=== PATIENT | male | born 1965 | race Caucasian/White ===

== ENCOUNTER 2016-04-21 05:37 | Inpatient (IN) | payer OTHER ==
[2016-04-20 15:48] VITALS: Ht 180.3 cm; Wt 105.0 kg
[2016-04-21] VITALS (24 sets, daily range): BP systolic 98–151; BP diastolic 62–87; PULSE 72–116; RESP 12–22
[~2016-04-21] VITALS: Ht 180.3 cm; Wt 105.0 kg
[~2016-04-21 05:37] MED LIST: HYDR-902 PO; OXYC10TA63 PO; PREG50CA PO; TIZA4CAP6 PO
[2016-04-21] MEDS ORDERED: CEFAZOLIN 2 GM/50 ML (PMX) 50 ML IVPB SCH (06:30)
[2016-04-21] MEDS ORDERED: LACTATED RINGER'S 1,000 ML IV* SCH (06:30)
[2016-04-21] MEDS ORDERED: GELATIN SIZE 100 SPONGE ONE ×2 (06:50→09:38)
[2016-04-21] MEDS ORDERED: CEFAZOLIN 1 GM INJ ONE ×2 (06:50→07:00)
[2016-04-21] MEDS ORDERED: THROMBIN 5000 UNIT VIAL ONE ×4 (06:50→09:38)
[2016-04-21] MEDS ORDERED: SURGIFOAM POWDER 1 GM KIT ONE ×2 (06:50→06:53)
[2016-04-21] MEDS ORDERED: BUPIVACAINE 0.25%/EPI (SDV) 30 ML INJ ONE ×2 (06:51→07:26)
--- NOTE | 2016-04-21 06:56 | HPN ---
Date/Time of Note Date/Time of Note DATE: 04/21/16 TIME: 06:56 Interval H&P Admission Note Pt. seen H&P reviewed: No system changes FARHAD BRAND MD Apr 21, 2016 06:56
[2016-04-21] MEDS ORDERED: NALOXONE (0.4 MG/ML) INJ IV PRN (07:00)
[2016-04-21] MEDS ORDERED: ALBUMIN HUMAN 5% 250 ML INJ ONE (07:00)
[2016-04-21] MEDS ORDERED: CYCLOBENZAPRINE 10 MG TAB PO PRN (07:00)
[2016-04-21] MEDS ORDERED: AL HYDROX/MG HYDROX/SIMETH 30 ML CUP PO PRN (07:00)
[2016-04-21] MEDS ORDERED: PROPOFOL 1000 MG INJ ONE (07:00)
[2016-04-21] MEDS ORDERED: DIPHENHYDRAMINE 50 MG INJ IV PRN ×2 (07:00→09:00)
[2016-04-21] MEDS ORDERED: CEPASTAT LOZENGE MT PRN (07:00)
[2016-04-21] MEDS ORDERED: HYDROmorphONE 1 MG/ML SYG IV PRN (07:00)
[2016-04-21] MEDS ORDERED: ACETAMINOPHEN 325 MG TAB PO PRN (07:00)
[2016-04-21] MEDS ORDERED: HYDROCODONE/APAP (10/325) TAB PO PRN (07:00)
[2016-04-21] MEDS ORDERED: HYDROmorphONE 0.2 MG/ML PCA IV SCH (07:00)
[2016-04-21] MEDS ORDERED: ONDANSETRON 4 MG INJ IV PRN ×2 (07:00→09:00)
[2016-04-21] MEDS ORDERED: ZOLPIDEM 5 MG TAB PO PRN (07:00)
[2016-04-21] MEDS ORDERED: DIPHENHYDRAMINE 25 MG CAP PO PRN (07:00)
[2016-04-21] MEDS ORDERED: DEXAMETHASONE 4 MG/ML 1 ML INJ ONE (07:03)
[2016-04-21] MEDS ORDERED: ROCURONIUM 50 MG INJ ONE (07:03)
[2016-04-21] MEDS ORDERED: LIDOCAINE 100 MG SYRINGE ONE (07:03)
[2016-04-21] MEDS ORDERED: ONDANSETRON 4 MG INJ ONE ×2 (07:03→12:35)
[2016-04-21] MEDS ORDERED: PROPOFOL 20 ML ONE (07:03)
[2016-04-21] MEDS ORDERED: NEOSTIGMINE 3 MG/3 ML SYRINGE ONE (07:03)
[2016-04-21] MEDS ORDERED: GLYCOPYRROLATE 1 MG INJ ONE (07:03)
[2016-04-21] MEDS ORDERED: MIDAZOLAM 1 MG/ML 2 ML INJ ONE (07:03)
[2016-04-21] MEDS ORDERED: HEPARIN 1000 UNITS/ML 10 ML INJ ONE (07:25)
[2016-04-21] MEDS ORDERED: SODIUM CL BACTERIOSTATIC 30 ML INJ ONE (08:46)
[2016-04-21] MEDS ORDERED: FENTAnyl 50 MCG/ML VIAL IV PRN ×3 (09:00)
[2016-04-21] MEDS ORDERED: TRIMETHOBENZAMIDE 100 MG/ML VIAL IM PRN (09:00)
[2016-04-21] MEDS: TIZANIDINE 4 MG TAB PO SCH (09:00)
[2016-04-21] MEDS ORDERED: HYDROmorphONE (0.2 MG/ML) 10ML SYG IV PRN ×3 (09:00)
[2016-04-21] MEDS ORDERED: LABETALOL HCL 20MG INJ IV PRN (09:00)
[2016-04-21] MEDS: oxyCODONE (CR) 20 MG TAB [oxyCONTIN] PO SCH ×2 (09:00→21:35)
[2016-04-21] MEDS ORDERED: MIDAZOLAM 1 MG/ML 2 ML INJ IV PRN (09:00)
[2016-04-21] MEDS ORDERED: EPHEDrine SULFATE 50 MG/5 ML SYG IV PRN (09:00)
[2016-04-21] MEDS ORDERED: MEPERIDINE 25 MG INJ IV PRN (09:00)
[2016-04-21] MEDS ORDERED: hydrALAzine 20 MG INJ IV PRN (09:00)
[2016-04-21] MEDS ORDERED: ALBUMIN HUMAN 25% 200 ML ONE (10:19)
[2016-04-21] MEDS ORDERED: FENTAnyl 50 MCG/ML VIAL ONE ×2 (10:43→13:02)
--- NOTE | 2016-04-21 11:45 | OPR ---
DATE OF OPERATION: 04/21/2016 PREOPERATIVE DIAGNOSES: 1. History of left L4-L5 diskectomy. 2. Chronic back pain with radiculopathy. 3. L4-5 and L5-S1 degenerative disk disease and stenosis. 4. BMI 33 (obesity). PRIMARY SURGEON: Don Ellison MD. CO-SURGEON: Francis Pedro MD SECOND CERTIFICATION OFFICER: AFTAB Rivera, NEED FOR CO-SURGEON: A co-surgeon was required in order to provide vascular access. This is the [facility] [place] [facility]. IMPLANTS: [place] stainless 42 width, 12 degree lordosis with 15 mm height at L4-L5 and 17 mm heig ht at L5-S1 with 6 mm x 30 mm screws throughout. Fibergraft. FINDINGS: Neuromonitoring at the start of the case revealed left L4 amplitude down 50%, right L4 am plitude down 50%, left L5 amplitude down 70%, right L5 amplitude down 60%, left S1 amplitude down 50 %, right S1 amplitude down 50%. At the end of the case L4 was normal, L5 were down 20% bilaterally and S1 down 10% bilaterally. The patient had scar tissue into the disk space from the previous surg eries, causing adherence of the disk. ESTIMATED BLOOD LOSS: Per Dr. Pedro. DRAINS: None. SPECIMENS: L4-5 and L5-S1 disk was sent to Pathology. COMPLICATIONS OF PROCEDURES: None. ANESTHESIOLOGIST: Chava Graham MD TYPE OF ANESTHESIA: General. INDICATIONS FOR PROCEDURE: This is a 50-year-old gentleman who had previously undergone an L4-L5 di skectomy. He has developed chronic pain in the back with radiating pain in the legs. He has disk d isease at L4-L5 and L5-S1 with loss of lordosis. He had failed nonoperative measures, therefore, I recommended proceeding with the above-mentioned surgery. Preoperatively, we discussed the risks, be nefits, and alternatives. He understood and wished to proceed. DESCRIPTION OF PROCEDURE IN DETAIL: The patient was identified in the preoperative holding area, myesha waller, taken to the operating room, where he was successfully placed under general a nesthesia. Neuromonitoring leads were placed, sequential compressive devices were applied. Abreu c atheter was introduced. Neuromonitoring was utilized during the procedure for this stage of the pro cedure for 2.5 hours to include SSEP, MEP, and EMG. Start time for this stage is a 8:15 a.m., closu re time was 10:45 a.m. The patient was placed on the operating table in supine position. All bony prominences were well padded. Arterial line was placed. OG tube was placed. The abdomen was then prepped and draped in usual sterile fashion. A left-sided anterior retroperitoneal approach was per formed by Dr. Pedro. He will dictate this portion separately. Due to the patient's BMI extende d instruments had to be used here. This added difficulty to the exposure and time to the surgery. Once the spine was exposed, I placed a bent spinal needle into what was felt to be the L5-S1 level a nd took AP and lateral images to confirm the correct level. Next, I made an annulotomy followed by radical diskectomy. I used curettes, Kerrison punches and pituitary rongeurs to perform the radical diskectomy. Once this was done, I prepared the endplates. I then placed various trials and chose the appropriate graft height. I then took the PEEK cage, within which I placed allograft and I impa cted the intervertebral biomechanical device into the L5-S1 level to complete the anterior lumbar in terbody fusion at L5-S1. I then placed integral screws using 30 mm screws at L5 and S1. Once this was done, I turned my attention to the L4-5 level. Again, annulotomy was made here. This disk was quite adherent, particularly on the left side due to the previous surgery. It was quite difficult t o remove the disk to perform the diskectomy due to the previous scar tissue and this added an additi onal 20 minutes to the procedure. Once I was able to complete a radical diskectomy, I placed variou s trials and chose the appropriate graft height. Again, I took the PEEK cage within which I placed allograft and I impacted this into the disk space at L4-L5 to complete the anterior lumbar interbody fusion at L4-5. I then placed the integrated screws at L4 and L5 using 30 mm x 6 mm screws. Once all the hardware was in place, I took AP and lateral images and I was happy with placement of the roque rdware and I liked the alignment of the spine as I was able to achieve better lordosis. Nerve signa l significantly improved at this point. There was venous bleeding which Dr. Pedro was able to p ut a stitch through and he will dictate this in his dictation. Once this was done, the wound was ir rigated. New shield devices applied and Dr. Pedro proceeded to close the wound which he will di ctate separately. The patient will be transferred into the prone position for stage II, which will be dictated separmireya cedeno. Dictated By: DON ROBERT/TIMI Conf#: [id number] DID#: [id number]
--- NOTE | 2016-04-21 13:01 | RADRPT ---
PROCEDURE: XR Abdomen. CLINICAL INDICATION: Abdominal pain. Intraoperative. TECHNIQUE: AP supine abdomen x-ray. COMPARISON: Intraoperative imaging of the lumbar spine done earlier the same day. FINDINGS: Images demonstrate fusion at L4-5 and L5-S1. There is a Abreu catheter in the bladder. There is no other radiopaque foreign body. The bowel gas pattern is normal with no evidence of obstruction. There are no abnormal calcifications overlying the urinary tracts. The osseus structures are unremarkable. IMPRESSION: 1. Prior spine surgery. 2. No abnormal radiopaque foreign body. 3. Results called to the operating room following the study. RPTAT: QQ .Daniele Figueroa MD, MD Date Time Electronically viewed and signed by .Daniele Figueroa MD, MD on 04/21/2016 13:01 .R/
--- NOTE | 2016-04-21 13:19 | OPR ---
DATE OF OPERATION: 04/21/2016 PREOPERATIVE DIAGNOSES: Status post anterior lumbar interbody fusion at L4-5 and L5-S1. POSTOPERATIVE DIAGNOSES: Status post anterior lumbar interbody fusion at L4-5 and L5-S1. OPERATION PERFORMED: 1. Pedicle screw placement at L4-5, and S1 bilaterally. 2. Posterolateral fusion at L4-5 and L5-S1. 3. Bone marrow aspiration from L4 vertebral body and pedicle. 4. Use of allograft. 5. Use of C-arm fluoroscopy with interpretation without radiologist present. 6. Intraoperative neuromonitoring (1 hour 45 minutes). IMPLANTS: [place] streamline MIS pedicle screws 6.5 x 40 mm at L4-5 and 7.5 x 40 mm at S1 bilaterally. PRIMARY SURGEON: Don Ellison MD MANUFACTURING PLANT CONTROLLER: AFTAB Rivera NEED FOR POWER REGULATOR: During this spinal surgical procedure, my elementary assistant teacher was used to retract and protect the spinal nerves and dural sac. My elementary assistant teacher also employed the suction catheters to evacuate blood from the surgical field to improve visualization of the neural structures. The elementary assistant teacher was medically necessary to facilitate the completion of the surgery in a safe and expeditious manner. State of [place] regulations, as well as hospital bylaws, preclude the use of non-licensed health care personnel, such as operating room technicians, to perform these functions. FINDINGS: Neuromonitoring at the start of the case revealed left L5 amplitude down 20%, bilateral S1 amplitude down 10%. At the end of the case, left L5 amplitude was 20% and the remainder of the nerve signals were normal. ESTIMATED BLOOD LOSS: Less than 50 mL. DRAINS: None. SPECIMENS: None. COMPLICATIONS OF PROCEDURES: None. ANESTHESIOLOGIST: Chava Graham MD TYPE OF ANESTHESIA: General. INDICATIONS FOR PROCEDURE: This is a 50-year-old gentleman who had previously undergone posterior lumbar decompression. He completed the anterior lumbar interbody fusion at L4-5 and L5-S1. This was stage I of the procedure, and this was dictated separately. He now represents for stage II. Preoperatively, we discussed the risks, benefits, and alternatives. He understood and wished to proceed. DESCRIPTION OF PROCEDURE IN DETAIL: Stage I surgery was completed and dictated separately. The patient was then placed on the operating table in prone position over a Rikki frame. All bony prominences were padded. Neuromonitoring for this stage was performed by [facility] for an hour and 45 minutes to include SSEP, MEP, and EMG with a start time of 11:00 a.m. and a closure time of 12:45 p.m. Using the C-arm fluoroscope, I identified the incision site. I assessed skin with Marcaine and epinephrine. An incision was then made over the L4, L5 and S1 pedicles bilaterally. Jamshidi needles were passed into the pedicles of the vertebral bodies at L4, L5 and S1 bilaterally. Bone marrow aspiration was performed from the L4 pedicle and vertebral body. I then passed guidewires followed by placement of the appropriate sized pedicle screws into L4, L5, and S1 bilaterally. Once there were in place, I stimulated each of the screws and there was no evidence of cortical breach. I then placed a 65 mm walt bilaterally with placement of set screws with tightening per manufacture specifications. The client advocate tabs were then removed. I then prepared the posterolateral gutters after irrigating the wound and placed the allograft into the posterolateral fusion at L4-5 and L5-S1. When this was done , I took final AP and lateral images and I was happy with the placement of the hardware and alignment of the spine. I then closed the deep fascia with #1 Vicryl stitch. I closed subcutaneous tissue with a 2-0 Vicryl stitch. A 4-0 Monocryl closure was then performed. Dermabond was then applied. The patient was then awakened from anesthesia and taken to recovery room in stable condition. Lap, sponge, and instrument counts were correct x2. There were no apparent complications during the procedure. The patient will be admitted to the orthopedic perdomo for routine postoperative care to include pain control, neurovascular checks, antibiotics, and physical therapy. Dictated By: DON ROBERT/TIMI Conf#: [id number] DID#: [id number] ORLIN
--- NOTE | 2016-04-21 14:13 | RADRPT ---
PROCEDURE: Intraoperative imaging of the lumbar spine with fluoroscopy. CLINICAL INDICATION: Back pain. Intraoperative. TECHNIQUE: 15 images of the lumbar spine were obtained in the operating room with an image intensi fier. No radiologist was in attendance. 133.3 seconds of fluoroscopy time was used. COMPARISON: 10/29/2008. FINDINGS: For the purposes of this report, the last apparent true disc level is considered to be L5-S1. Based on this, effusion is present with intervertebral cages at L4-5 and L5-S1. There are also anterior screws at L4-5 and L5-S1. Posterior pedicle screws and connecting rods are present at L4, L5, and S 1. IMPRESSION: 1. Intraoperative imaging of the lumbar spine. RPTAT: QQ .Daniele Figueroa MD, Date Time Electronically viewed and signed by .Daniele Figueroa MD, on 04/21/2016 14:13 .R/
--- NOTE | 2016-04-21 14:18 | CONS ---
DATE OF ADMISSION: 04/21/2016 DATE OF CONSULTATION: 04/21/2016 REFERRING PHYSICIAN: Don Ellison MD Thank you very much for allowing me to evaluate this 50-year-old male who just underwent lumbar back surgery. HISTORICAL EVENTS: As you well know, this patient did have a prior microdiskectomy in October 2008 inv olving L4-L5. Because of recurrent low back pain and left leg radicular pain, he ultimately was uzma luated by you and despite conservative efforts pain continued and he elected to proceed with surgery . Postoperatively, in recovery, he is comfortable, somnolent, easily arousable and denies cough, wh eezing, shortness of breath, nausea, vomiting, abdominal or chest pain. PAST MEDICAL HISTORY: Includes 1. Left shoulder surgery. 2. Left ring finger surgery. 3. No history of hypertension, diabetes or angina. SOCIAL HISTORY: He does not smoke, rarely drinks. He uses an E-cigarette. MEDICATIONS: None. PHYSICAL EXAMINATION: GENERAL: Exam reveals a somnolent male in no acute distress. VITAL SIGNS: BP 120/80, pulse 70, respirations 20, he was afebrile. EYES: Extraocular muscles were full. NOSE, MOUTH, AND THROAT: Normal. NECK: Supple. There was no jugular venous distention, thyroid enlargement or adenopathy. Carotids 2+. LUNGS: Clear. HEART: Rhythm regular, no murmur. No third or fourth sound. ABDOMEN: Nontender. Liver and spleen were not palpable. No masses or tenderness were noted. EXTREMITIES: No edema. Calves nontender. IMPRESSION: 1. Stable postop lumbar back surgery. 2. Will evaluate him daily for signs and symptoms of thromboembolic disease. Dictated By: ESTIVEN CHAMPAGNE/TIMI Conf#: [id number] DID#: [id number]
--- NOTE | 2016-04-21 14:21 | RADRPT ---
PROCEDURE: Intraoperative imaging of the lumbar spine with fluoroscopy. CLINICAL INDICATION: Back pain. Intraoperative. TECHNIQUE: A single frontal image of the lumbar spine was obtained in the operating room with an i mage intensifier. No radiologist was in attendance. 43.4 seconds of fluoroscopy time was used. COMPARISON: 10/29/2008. FINDINGS: The image demonstrates multiple surgical devices overlying the lower lumbosacral spine. IMPRESSION: 1. Intraoperative imaging of the lumbar spine. RPTAT: QQ .Daniele Figueroa MD, Date Time Electronically viewed and signed by .Daniele Figueroa MD, on 04/21/2016 14:20 .R/
[2016-04-21] MEDS: CEFAZOLIN 1 GM/50 ML (PMX) 50 ML IVPB SCH ×3 (15:00→23:03)
[2016-04-21] MEDS: D5W-0.45 NACL + KCL 20 MEQ 1,000 ML IV SCH ×2 (15:05→16:56)
[2016-04-21 19:51] LABS: ADD UMIC YES; URINE BILIRUBIN (Dip) NEGATIVE (NEGATIVE); URINE BLOOD (Dip) 1+ (NEGATIVE); URINE COLOR LT. YELLOW (YELLOW); URINE GLUCOSE (Dip) NEGATIVE (NEGATIVE); URINE KETONES (Dip) NEGATIVE (NEGATIVE); URINE LEUKOCYTE ESTERASE (Dip) NEGATIVE (NEGATIVE); URINE NITRITE (Dip) NEGATIVE (NEGATIVE); URINE TOTAL PROTEIN (Dip) NEGATIVE (NEGATIVE); URINE UROBILINOGEN (Dip) 0.2 E.U./dL (0.1-1.0)
[2016-04-21 20:05] LABS: SQUAMOUS EPITHELIAL CELL,UR RARE; URIC ACID CRYSTALS,URINE RARE
[2016-04-21] MEDS: PREGABALIN 25 MG CAP PO SCH (21:35)
[2016-04-22] MEDS: HYDROmorphONE 0.2 MG/ML PCA IV SCH ×3 (00:11→12:38)
[2016-04-22] MEDS: D5W-0.45 NACL + KCL 20 MEQ 1,000 ML IV SCH ×3 (02:35→20:14)
[2016-04-22 03:03] VITALS: BP 97/50; RESP 18
[2016-04-22 04:00] VITALS: BP 96/60; RESP 18
[2016-04-22] MEDS: PANTOPRAZOLE 40 MG INJ IV SCH (05:07)
[2016-04-22 05:31] LABS: BASOPHILS % 0.4 % (0.0-2.0); EOSINOPHILS % 0.1 % (0.0-7.0); HEMATOCRIT 31.4 % (42.0-52.0); HEMOGLOBIN 10.8 g/dl (14.0-18.0); LYMPHOCYTES # 1.5 10^3/ul (0.8-2.9); LYMPHOCYTES % 18.9 % (15.0-51.0); MEAN CORPUSCULAR HEMOGLOBIN 30.1 pg (29.0-33.0); MEAN CORPUSCULAR HGB CONC 34.3 g/dl (32.0-37.0); MEAN CORPUSCULAR VOLUME 87.9 fl (82.0-101.0); MONOCYTE # 0.7 10^3/ul (0.3-0.9); MONOCYTES % 9.5 % (0.0-11.0); NEUTROPHIL # 5.5 10^3/ul (1.6-7.5); NEUTROPHILS % 71.1 % (39.0-77.0); PLATELET COUNT 255 10^3/UL (140-440); RED BLOOD COUNT 3.57 10^6/ul (4.70-6.10); UNCORRECTED WBC 7.7 10^3/ul (4.8-10.8); WHITE BLOOD COUNT 7.7 10^3/ul (4.8-10.8)
[2016-04-22 05:52] LABS: POTASSIUM 3.9 mmol/L (3.5-5.1)
[2016-04-22 05:54] LABS: CREATININE 1.09 mg/dl (0.61-1.24)
[2016-04-22 05:55] LABS: CALCIUM 8.3 mg/dl (8.4-10.2); MAGNESIUM 1.8 mg/dl (1.7-2.5)
[2016-04-22 06:00] LABS: CONDITION 1
[2016-04-22] MEDS ORDERED: CEFAZOLIN 1 GM/50 ML (PMX) 50 ML IVPB ONE (06:00)
[2016-04-22 08:22] VITALS: BP 103/59; RESP 18
--- NOTE | 2016-04-22 08:22 | CONS ---
Date/Time of Note Date/Time of Note DATE: 04/22/16 TIME: 08:20 Assessment/Plan Assessment/Plan Additional Assessment/Plan 1. Stable post op lumbar laminectomy, labs rev 2. PT to see soon Consultation Date/Type/Reason Admit Date/Time Apr 21, 2016 at 05:37 Initial Consult Date Detailed Summary Respiratory: No cough, No shortness of breath Cardiovascular: No chest pain Gastrointestinal: pain (mild lower abdominal), No nausea, No vomiting Musculoskeletal: back pain (moderate) Exam/Review of Systems Vital Signs Vitals Vital Signs Date Time Temp Pulse Resp B/P Pulse Ox O2 Delivery O2 Flow Rate FiO2 04/22/16 05:00 18 04/22/16 04:00 99.5 84 96/60 97 04/21/16 17:15 Nasal Cannula 2.0 Intake and Output 04/21/16 04/21/16 04/22/16 15:00 23:00 07:00 Intake Total 3600 ml 950 ml 2800 ml Output Total 1050 ml 500 ml 2300 ml Balance 2550 ml 450 ml 500 ml Exam Neck: non-tender, No jvd Respiratory: clear to auscultation Cardiovascular: regular rate and rhythm Gastrointestinal: soft, tender (1+ lower abdomen) Extremities: No edema (and no calf tend) Results Result Diagram: 04/22/16 0420 04/22/16 0420 Results 24 hrs Laboratory Tests Test 04/21/16 13:05 04/22/16 04:20 Urine Bilirubin NEGATIVE Urine Clarity CLEAR Urine Color LT. YELLOW Urine Glucose NEGATIVE Urine Hemoglobin 1+ H Urine Ketones NEGATIVE Urine Leukocyte Esterase NEGATIVE Urine Microscopic RBC 2-5 Urine Microscopic WBC 0-2 Urine Nitrite NEGATIVE Urine Specific [place] 1.025 Urine Squamous Epithelial Cells RARE Urine Total Protein NEGATIVE Urine Uric Acid Crystals RARE Urine Urobilinogen 0.2 E.U./dL Urine pH 5.0 Anion Gap 14 Basophils # 0.0 Basophils % 0.4 Blood Urea Nitrogen 13 Calcium Level 8.3 L Carbon Dioxide Level 30 Chloride Level 100 Creatinine 1.09 Eosinophils # 0.0 Eosinophils % 0.1 Glucose Level 107 Hematocrit 31.4 L Hemoglobin 10.8 L Lymphocytes # 1.5 Lymphocytes % 18.9 Magnesium Level 1.8 Mean Corpuscular Hemoglobin 30.1 Mean Corpuscular Hemoglobin Concent 34.3 Mean Corpuscular Volume 87.9 Mean Platelet Volume 8.0 Monocytes # 0.7 Monocytes % 9.5 Neutrophils # 5.5 Neutrophils % 71.1 Nucleated Red Blood Cells # 0.0 Nucleated Red Blood Cells % 0.0 Platelet Count 255 Potassium Level 3.9 Red Blood Count 3.57 L Red Cell Distribution Width 13.0 Sodium Level 140 White Blood Count 7.7 Medications Medications Current Medications Potassium Chloride/Dextrose/ Sod Cl (D5-1/2ns + KCl 20 Meq) 1,000 ml @ 100 mls/ hr Q10H IV Last administered on 04/22/16 05:07; Admin Dose 100 MLS/HR; Start 04/21/16 at 06:56 Acetaminophen/ Hydrocodone Bitart (Geronimo (10/325)) 1 tab Q4H PRN PO PAIN LEVEL 1-5; Start 04/21/16 at 07:00 Acetaminophen/ Hydrocodone Bitart (Geronimo (10/325)) 2 tab Q4H PRN PO PAIN LEVEL 6-10; Start 04/21/16 at 07:00 Zolpidem Tartrate (Ambien) 5 mg HS PRN PO INSOMNIA; Start 04/21/16 at 07:00 Ondansetron HCl (Zofran Inj) 4 mg Q6H PRN IV NAUSEA AND/OR VOMITING; Start at 07:00 Pantoprazole (Protonix Iv) 40 mg DAILY@06 IV Last administered on 04/22/16 05: 07; Admin Dose 40 MG; Start 04/22/16 at 06:00 Al Hydrox/Mg Hydrox/Simethicone (Mag-Al Plus) 15 ml Q6H PRN PO CONSTIPATION/ DYSPEPSIA; Start 04/21/16 at 07:00 Acetaminophen (Tylenol Tab) 650 mg Q4H PRN PO LUTZ OR TEMP GREATER THAN 101.3F; Start 04/21/16 at 07:00 Cyclobenzaprine HCl (Flexeril) 10 mg TID PRN PO MUSCLE SPASMS Last administered on 04/21/16 15:05; Admin Dose 10 MG; Start 04/21/16 at 07:00 Phenol (Cepastat Lozenge) 1 lozenge PRN PRN MT SORE THROAT; Start 04/21/16 at 07:00 Diphenhydramine HCl (Benadryl) 25 mg Q6H PRN PO ITCHING; Start 04/21/16 at 07: 00 Diphenhydramine HCl (Benadryl) 25 mg Q6H PRN IV ITCHING; Start 04/21/16 at 07: 00 Naloxone HCl (Narcan) 0.2 mg Q2M PRN IV RR 8 BREATHS/MIN OR LESS; Start at 07:00 Miscellaneous Information 1. Hold DIRECTOR TALENT MANAGEMENT at 1,000... DIRECTOR TALENT MANAGEMENT IV ; Start 04/21/16 at 07: 00 Hydromorphone HCl (Dilaudid) 0.2 mg Q1H PRN IV BREAKTHROUGH PAIN; Start at 07:00 Oxycodone HCl (Oxycontin) 20 mg BID PO Last administered on 04/21/16 21:35; Admin Dose 20 MG; Start 04/21/16 at 09:00 Pregabalin (Lyrica) 50 mg QPM PO Last administered on 04/21/16 21:35; Admin Dose 50 MG; Start 04/21/16 at 21:00 Tizanidine HCl (Zanaflex) 4 mg DAILY PO ; Start 04/21/16 at 09:00 Hydromorphone HCl (Dilaudid DIRECTOR TALENT MANAGEMENT) DIRECTOR TALENT MANAGEMENT to be started in PACU Q4PCA IV Last administered on 04/22/16 05:08; Admin Dose 6 MG; Start 04/21/16 at 16:00 ESTIVEN FARNSWORTH MD Apr 22, 2016 08:22
[2016-04-22] MEDS: oxyCODONE (CR) 20 MG TAB [oxyCONTIN] PO SCH ×2 (08:40→20:15)
[2016-04-22] MEDS: TIZANIDINE 4 MG TAB PO SCH (08:41)
--- NOTE | 2016-04-22 09:17 | PN ---
Date/Time of Note Date/Time of Note DATE: 04/22/16 TIME: 09:16 Assessment/Plan Lines/Catheters IV Catheter Type (from Nrsg): Peripheral IV Abreu in Place (from Nrsg): Yes Assessment/Plan Assessment/Plan Status post ALIF L4-5 and L5-S1 Routine postoperative care, pain control, physical therapy. Subjective 24 Hr Interval Summary Complains of abdominal pain, minimal back pain, no calf pain. Exam/Review of Systems Vital Signs Vitals Vital Signs Date Time Temp Pulse Resp B/P Pulse Ox O2 Delivery O2 Flow Rate FiO2 04/22/16 09:14 1 04/22/16 08:22 99.1 95 103/59 100 04/21/16 17:15 Nasal Cannula 2.0 Intake and Output 04/21/16 04/21/16 04/22/16 15:00 23:00 07:00 Intake Total 3600 ml 950 ml 2800 ml Output Total 1050 ml 500 ml 2300 ml Balance 2550 ml 450 ml 500 ml Exam Free Text/Dictation Abdomen soft and nontender, no calf pain, neurovascularly intact Results Result Diagram: 04/22/16 0420 04/22/16 0420 FARHAD BRAND MD Apr 22, 2016 09:17
--- NOTE | 2016-04-22 13:36 | OPR ---
DATE OF OPERATION: 04/21/2016 PREOPERATIVE DIAGNOSIS: Degenerative disk disease L4-L5 and L5-S1. POSTOPERATIVE DIAGNOSIS: Degenerative disk disease L4-5 and L5-S1. PROCEDURE: Anterior retroperitoneal exposure and interbody fusion at the level of L4-L5, L5-S1. SURGEON: Tonie Pedro MD CO-SURGEON: Dr. Ellison. INFORMED CONSENT: Risks, benefits, complications, alternative therapies, high-risk nature of the op eration were fully explained to the patient and the family, consent obtained. OPERATIVE TECHNIQUE: The patient was placed in supine position, prepped and draped in usual sterile fashion. Time-out was called, antibiotic was given and I started. An 8 cm incision was made in the left lower quadrant below the umbilicus in oblique fashion. Incisi on was taken down to the subcutaneous tissue which was then opened using electrocautery. The anteri or rectus sheath was opened in the direction of the wound. Posterior rectus sheath was opened super iorly about a cm. Retroperitoneal space was entered. Bookwalter was placed retracting the bowel co ntents to the right and left rectus muscle to the left. I retracted the iliac vessels and ligated t he iliolumbar vein using titanium clip and 2-0 silk ties. Exposure to the middle sacral vessels wer e also ligated using titanium clips. The exposure for L4-L5 was obtained by retracting the vessels to the right and exposure for L5-S1 was obtained ____ the vessels. After the diskectomy and placeme nt of the disk of the new cage, all the needle count and sponge count was correct. The wound was ir rigated using antibiotic solution. Posterior rectus sheath was closed using a 2-0 Vicryl suture in a running fashion. Anterior rectus sheath was closed using #1 Vicryl suture in running fashion. Th e wound was irrigated with antibiotic solution and closed with 2-0 Vicryl suture for the deep and 4- 0 Monocryl suture for running subcuticular skin closure. The patient tolerated the procedure well. Dictated By: TONIE PEDRO MD FM/NTS Conf#: [id number] DID#: [id number]
[2016-04-22 19:45] VITALS: BP 117/66; RESP 18
[2016-04-22] MEDS: PREGABALIN 25 MG CAP PO SCH (20:14)
[2016-04-23] MEDS: PANTOPRAZOLE 40 MG INJ IV SCH (04:48)
[2016-04-23 05:23] LABS: BASOPHILS % 0.1 % (0.0-2.0); EOSINOPHILS % 0.5 % (0.0-7.0); HEMOGLOBIN 10.4 g/dl (14.0-18.0); LYMPHOCYTES # 0.9 10^3/ul (0.8-2.9); LYMPHOCYTES % 9.6 % (15.0-51.0); MEAN CORPUSCULAR HEMOGLOBIN 30.4 pg (29.0-33.0); MEAN CORPUSCULAR HGB CONC 34.8 g/dl (32.0-37.0); MEAN CORPUSCULAR VOLUME 87.4 fl (82.0-101.0); MEAN PLATELET VOLUME 7.8 fl (7.4-10.4); MONOCYTE # 0.9 10^3/ul (0.3-0.9); MONOCYTES % 9.4 % (0.0-11.0); NEUTROPHIL # 7.6 10^3/ul (1.6-7.5); NEUTROPHILS % 80.4 % (39.0-77.0); PLATELET COUNT 236 10^3/UL (140-440); RED BLOOD COUNT 3.43 10^6/ul (4.70-6.10); UNCORRECTED WBC 9.5 10^3/ul (4.8-10.8); WHITE BLOOD COUNT 9.5 10^3/ul (4.8-10.8)
[2016-04-23 05:37] LABS: CONDITION 1
[2016-04-23 05:48] LABS: CREATININE 0.94 mg/dl (0.61-1.24)
[2016-04-23 05:49] LABS: CALCIUM 8.1 mg/dl (8.4-10.2); MAGNESIUM 1.8 mg/dl (1.7-2.5)
[2016-04-23] MEDS: TIZANIDINE 4 MG TAB PO SCH (08:44)
[2016-04-23] MEDS: oxyCODONE (CR) 20 MG TAB [oxyCONTIN] PO SCH (08:44)
[2016-04-23 08:51] VITALS: BP 111/71; RESP 18
[2016-04-23] MEDS: D5W-0.45 NACL + KCL 20 MEQ 1,000 ML IV SCH (08:56)
--- NOTE | 2016-04-23 11:34 | CONS ---
Date/Time of Note Date/Time of Note DATE: 04/23/16 TIME: 11:32 Assessment/Plan Assessment/Plan Additional Assessment/Plan 1. Doing well post op lumbar laminectomy 2. Mild ileus that is improving 3. Peters to be removed today Consultation Date/Type/Reason Admit Date/Time Apr 21, 2016 at 05:37 Detailed Summary Respiratory: cough, shortness of breath Cardiovascular: chest pain Gastrointestinal: nausea, pain (mild, less then yesterday), vomiting Genitourinary: other (peters still in place) Exam/Review of Systems Vital Signs Vitals Vital Signs Date Time Temp Pulse Resp B/P Pulse Ox O2 Delivery O2 Flow Rate FiO2 04/23/16 08:51 89 18 111/71 97 04/23/16 08:50 99.5 04/21/16 17:15 Nasal Cannula 2.0 Intake and Output 04/22/16 04/22/16 04/23/16 15:00 23:00 07:00 Intake Total 1400 ml 1700 ml Output Total 600 ml 1000 ml Balance 800 ml 700 ml Exam Neck: jvd Respiratory: clear to auscultation Cardiovascular: regular rate and rhythm Gastrointestinal: other (1+ periumbil tend, bs present) Extremities: edema (and no calf tend bilat) Results Result Diagram: 04/23/16 0450 04/23/16 0450 Results 24 hrs Laboratory Tests Test 04/23/16 04:50 Anion Gap 11 Basophils # 0.0 Basophils % 0.1 Blood Urea Nitrogen 10 Calcium Level 8.1 L Carbon Dioxide Level 31 Chloride Level 97 Creatinine 0.94 Eosinophils # 0.0 Eosinophils % 0.5 Glucose Level 109 Hematocrit 30.0 L Hemoglobin 10.4 L Lymphocytes # 0.9 Lymphocytes % 9.6 L Magnesium Level 1.8 Mean Corpuscular Hemoglobin 30.4 Mean Corpuscular Hemoglobin Concent 34.8 Mean Corpuscular Volume 87.4 Mean Platelet Volume 7.8 Monocytes # 0.9 Monocytes % 9.4 Neutrophils # 7.6 H Neutrophils % 80.4 H Nucleated Red Blood Cells # 0.0 Nucleated Red Blood Cells % 0.0 Platelet Count 236 Potassium Level 4.0 Red Blood Count 3.43 L Red Cell Distribution Width 13.0 Sodium Level 135 White Blood Count 9.5 # Medications Medications Current Medications Potassium Chloride/Dextrose/ Sod Cl (D5-1/2ns + KCl 20 Meq) 1,000 ml @ 100 mls/ hr Q10H IV Last administered on 04/22/16 20:14; Admin Dose 100 MLS/HR; Start 04/21/16 at 06:56 Acetaminophen/ Hydrocodone Bitart ([place]rone (10/325)) 1 tab Q4H PRN PO PAIN LEVEL 1-5; Start 04/21/16 at 07:00 Acetaminophen/ Hydrocodone Bitart ([place]ckrone (10/325)) 2 tab Q4H PRN PO PAIN LEVEL 6-10; Start 04/21/16 at 07:00 Zolpidem Tartrate (Ambien) 5 mg HS PRN PO INSOMNIA; Start 04/21/16 at 07:00 Ondansetron HCl (Zofran Inj) 4 mg Q6H PRN IV NAUSEA AND/OR VOMITING; Start at 07:00 Pantoprazole (Protonix Iv) 40 mg DAILY@06 IV Last administered on 04/23/16 04: 48; Admin Dose 40 MG; Start 04/22/16 at 06:00 Al Hydrox/Mg Hydrox/Simethicone (Mag-Al Plus) 15 ml Q6H PRN PO CONSTIPATION/ DYSPEPSIA Last administered on 04/23/16 10:01; Admin Dose 15 ML; Start at 07:00 Acetaminophen (Tylenol Tab) 650 mg Q4H PRN PO LUTZ OR TEMP GREATER THAN 101.3F; Start 04/21/16 at 07:00 Cyclobenzaprine HCl (Flexeril) 10 mg TID PRN PO MUSCLE SPASMS Last administered on 04/21/16 15:05; Admin Dose 10 MG; Start 04/21/16 at 07:00 Phenol (Cepastat Lozenge) 1 lozenge PRN PRN MT SORE THROAT; Start 04/21/16 at 07:00 Diphenhydramine HCl (Benadryl) 25 mg Q6H PRN PO ITCHING; Start 04/21/16 at 07: 00 Diphenhydramine HCl (Benadryl) 25 mg Q6H PRN IV ITCHING; Start 04/21/16 at 07: 00 Naloxone HCl (Narcan) 0.2 mg Q2M PRN IV RR 8 BREATHS/MIN OR LESS; Start at 07:00 Miscellaneous Information 1. Hold [employer] at 1,000... [employer] IV ; Start 04/21/16 at 07: 00 Hydromorphone HCl (Dilaudid) 0.2 mg Q1H PRN IV BREAKTHROUGH PAIN; Start at 07:00 Oxycodone HCl (Oxycontin) 20 mg BID PO Last administered on 04/23/16 08:44; Admin Dose 20 MG; Start 04/21/16 at 09:00 Pregabalin (Lyrica) 50 mg QPM PO Last administered on 04/22/16 20:14; Admin Dose 50 MG; Start 04/21/16 at 21:00 Tizanidine HCl (Zanaflex) 4 mg DAILY PO Last administered on 04/23/16 08:44; Admin Dose 4 MG; Start 04/21/16 at 09:00 Hydromorphone HCl (Dilaudid [employer]ENDANT) [employer]ENDANT to be started in PACU Q4PCA IV Last administered on 04/22/16 12:38; Admin Dose 6 MG; Start 04/21/16 at 16:00 ESTIVEN FARNSWORTH MD Apr 23, 2016 11:34
[2016-04-23] MEDS: HYDROCODONE/APAP (10/325) TAB PO PRN ×2 (13:56→15:40)
--- NOTE | 2016-04-24 05:43 | DS ---
DATE OF ADMISSION: 04/21/2016 DATE OF DISCHARGE: 04/23/2016 ADMITTING DIAGNOSIS: Disk disease. DISCHARGE DIAGNOSIS: Disk disease. PROCEDURE: The patient was taken to the operating room on 04/21/2016 and underwent ALIF at L4-5 and L5-S1. HOSPITAL COURSE: The patient was admitted to the orthopedic perdomo after undergoing the above procedu res. His postoperative course was uncomplicated. By postop day 2, he was deemed stable for dischar ge, with followup arranged with the undersigned. Dictated By: FARHAD ROBERT/TIMI Conf#: [id number] DID#: [id number]
[2016-04-24] MEDS ORDERED: PANTOPRAZOLE (EC) 40 MG TAB PO SCH (06:00)
--- NOTE | 2016-04-27 08:17 | QN ---
Documentation Comment OPERATIVE REPORT DATE OF OPERATION: 04/21/2016 PREOPERATIVE DIAGNOSES: 1. History of left L4-L5 diskectomy. 2. Chronic back pain with radiculopathy. 3. L4-5 and L5-S1 degenerative disk disease and stenosis. 4. BMI 33 (obesity). POST OPERATIVE DIAGNOSIS:PREOPERATIVE DIAGNOSES: 1. History of left L4-L5 diskectomy. 2. Chronic back pain with radiculopathy. 3. L4-5 and L5-S1 degenerative disk disease and stenosis. 4. BMI 33 (obesity). PROCEDURE: 1. Anterior lumbar interbody fusion L4-5 and L5-S1. 2. Placement of intervertebral biomechanical device with integral screws at L4- 5 and L5-S1. 3. Use of allograft. 4. Placement of NuShield. 5. Use of C-arm fluoroscopy with interpretation without radiologist present. 6. Intraoperative neuromonitoring (2.5 hours). PRIMARY SURGEON: Don Brand MD. CO-SURGEON: Francis Pedro MD SECOND BOW STAPLER: AFTAB Rivera, NEED FOR CO-SURGEON: A co-surgeon was required in order to provide vascular access. This is the standard of care. IMPLANTS: [place] stainless 42 width, 12 degree lordosis with 15 mm height at L4-L5 and 17 mm height at L5-S1 with 6 mm x 30 mm screws throughout. Fibergraft. FINDINGS: Neuromonitoring at the start of the case revealed left L4 amplitude down 50%, right L4 amplitude down 50%, left L5 amplitude down 70%, right L5 amplitude down 60%, left S1 amplitude down 50%, right S1 amplitude down 50%. At the end of the case L4 was normal, L5 were down 20% bilaterally and S1 down 10% bilaterally. The patient had scar tissue into the disk space from the previous surgeries, causing adherence of the disk. ESTIMATED BLOOD LOSS: Per Dr. Pedro. DRAINS: None. SPECIMENS: L4-5 and L5-S1 disk was sent to Pathology. COMPLICATIONS OF PROCEDURES: None. ANESTHESIOLOGIST: Chava Graham MD TYPE OF ANESTHESIA: General. INDICATIONS FOR PROCEDURE: This is a 50-year-old gentleman who had previously undergone an L4-L5 diskectomy. He has developed chronic pain in the back with radiating pain in the legs. He has disk disease at L4-L5 and L5-S1 with loss of lordosis. He had failed nonoperative measures, therefore, I recommended proceeding with the above-mentioned surgery. Preoperatively, we discussed the risks, benefits, and alternatives. He understood and wished to proceed. DESCRIPTION OF PROCEDURE IN DETAIL: The patient was identified in the preoperative holding area, given Ancef antibiotics, taken to the operating room , where he was successfully placed under general anesthesia. Neuromonitoring leads were placed, sequential compressive devices were applied. Abreu catheter was introduced. Neuromonitoring was utilized during the procedure for this stage of the procedure for 2.5 hours to include SSEP, MEP, and EMG. Start time for this stage is a 8:15 a.m., closure time was 10:45 a.m. The patient was placed on the operating table in supine position. All bony prominences were well padded. Arterial line was placed. OG tube was placed. The abdomen was then prepped and draped in usual sterile fashion. A left-sided anterior retroperitoneal approach was performed by Dr. Pedro. He will dictate this portion separately. Due to the patient's BMI extended instruments had to be used here. This added difficulty to the exposure and time to the surgery. Once the spine was exposed, I placed a bent spinal needle into what was felt to be the L5-S1 level and took AP and lateral images to confirm the correct level. Next, I made an annulotomy followed by radical diskectomy. I used curettes, Kerrison punches and pituitary rongeurs to perform the radical diskectomy. Once this was done, I prepared the endplates. I then placed various trials and chose the appropriate graft height. I then took the PEEK cage, within which I placed allograft and I impacted the intervertebral biomechanical device into the L5-S1 level to complete the anterior lumbar interbody fusion at L5-S1. I then placed integral screws using 30 mm screws at L5 and S1. Once this was done , I turned my attention to the L4-5 level. Again, annulotomy was made here. This disk was quite adherent, particularly on the left side due to the previous surgery. It was quite difficult to remove the disk to perform the diskectomy due to the previous scar tissue and this added an additional 20 minutes to the procedure. Once I was able to complete a radical diskectomy, I placed various trials and chose the appropriate graft height. Again, I took the PEEK cage within which I placed allograft and I impacted this into the disk space at L4- L5 to complete the anterior lumbar interbody fusion at L4-5. I then placed the integrated screws at L4 and L5 using 30 mm x 6 mm screws. Once all the hardware was in place, I took AP and lateral images and I was happy with placement of the hardware and I liked the alignment of the spine as I was able to achieve better lordosis. Nerve signal significantly improved at this point. There was venous bleeding which Dr. Pedro was able to put a stitch through and he will dictate this in his dictation. Once this was done, the wound was irrigated. New shield devices applied and Dr. Pedro proceeded to close the wound which he will dictate separately. The patient will be transferred into the prone position for stage II, which will be dictated separately. Dictated By: DON BRAND MD BB/NTS Conf#: [id number] DID#: [id number] <Electronically signed by DON BRAND MD> 04/22/[address] [address] [place] [address] Patient: ZAHRA ROA D.O.B: 1965 MR. No.: [id number] Room No: 421-A Physician: DON BRAND MD Dictated By: DON TODD MD, MD Apr 27, 2016 08:17
== END 2016-04-23 18:30 | disposition home or self-care (01) | DRG 455 ==
LOC: REC 05:37 → MS1 15:03
PROVIDERS: ADMIT Specialist; ATTEND Specialist
PROC: 0SG30A1 (ICD-10-PCS; 2016-04-21)
PROC: 0ST40ZZ Resection of Lumbosacral Disc, Open Approach (ICD-10-PCS; 2016-04-21)
PROC: 0ST20ZZ Resection of Lumbar Vertebral Disc, Open Approach (ICD-10-PCS; 2016-04-21)
PROC: 0SG30A0 Fusion of Lumbosacral Joint with Interbody Fusion Device, Anterior Approach, Anterior Column, Open Approach (ICD-10-PCS; principal; 2016-04-21 07:00)
DX: M51.17 Intervertebral disc disorders with radiculopathy, lumbosacral region (principal); E66.9 Obesity, unspecified; Z68.33 Body mass index [BMI] 33.0-33.9, adult
CPT/HCPCS: 72020; 72114; 74000; 80048; 81001; 81003; 83735; 85025; 86850; 86900; 86901; 86920; 97116; 97161; 97530; C1713; C9113; J0690; J1100; J1170; J1200; J1644; J2001; J2175; J2250; J2405; J2710; J3010; J3480; P9045; P9047; V2790